=== PATIENT | male | born 1945 | race Caucasian/White ===

== ENCOUNTER 2016-08-14 09:18 | Outpatient (CLI) | payer MEDICARE | END 2016-08-14 09:19 | disposition home or self-care (01) | LOC: NAVSJIPCSP 09:18 | PROVIDERS: ATTEND Internal Medicine | DX: E78.5 Hyperlipidemia, unspecified (principal); E11.29 Type 2 diabetes mellitus with other diabetic kidney complication; Z79.899 Other long term (current) drug therapy | CPT/HCPCS: 36415; 80061 ==

== ENCOUNTER 2016-11-21 11:56 | Outpatient (CLI) | payer MEDICARE ==
[2016-11-21 13:54] LABS: Cardiac Risk 4.9 (Less than 4.5)
[2016-11-21 14:41] LABS: Hemoglobin A1c 12.1 % (4.0-6.0)
== END 2016-11-21 11:57 | disposition home or self-care (01) ==
LOC: NAVSJIPCSP 11:56
PROVIDERS: ATTEND Internal Medicine
DX: E78.5 Hyperlipidemia, unspecified (principal); E11.29 Type 2 diabetes mellitus with other diabetic kidney complication; Z79.899 Other long term (current) drug therapy
CPT/HCPCS: 36415; 80061; 83036

== ENCOUNTER 2019-10-10 17:43 | Inpatient (IN) | payer MEDICARE ==
[2019-10-10 18:24] LABS: ALT (SGPT) 16 U/L (8-55); AST (SGOT) 17 U/L (5-34); Albumin 3.4 g/dL (3.4-4.8); Alkaline Phosphatase 32 U/L (40-110); Anion Gap 17 mmol/L (10-20); BUN (Urea Nitrogen) 26 mg/dL (8.4-25.7); Bilirubin, Total 0.7 mg/dL (0.2-1.2); CK (CPK) 65 U/L (30-200); Calc. Creatinine Clearance 0 mL/min (70-130); Calcium 9.1 mg/dL (7.8-10.44); Carbon Dioxide 19 mmol/L (23-31); Chloride 101 mmol/L (98-107); Estimated GFR-MDRD 40; Globulin 3.2 g/dL (2.4-3.5); Glucose 236 mg/dL (83-110); Protein, Total 6.6 g/dL (5.8-8.1); Sodium 133 mmol/L (136-145)
[2019-10-10 18:40] LABS: #Basophils 0.1 thou/uL (0.0-0.2); #Lymphocytes 1.2 thou/uL (1.20-3.40); #Monocytes 1.2 thou/uL (0.11-0.59); #Neutrophils 11.5 thou/uL (1.40-6.50); %Basophils 0.7 % (0.0-1.0); %Eosinophils 0.4 % (0.0-10.0); %Lymphocytes 8.2 % (21.0-51.0); %Monocytes 8.4 % (0.0-10.0); %Neutrophils 82.3 % (42.0-75.0); Hemoglobin 11.2 g/dL (14.0-18.0); Mean Corpuscular HGB CONC 33.5 g/dL (32.0-36.0); Mean Corpuscular Hemoglobin 33.9 pg (27.0-31.0); Mean Platelet Volume 7.5 fL (7.4-10.4); Platelet Count 174 thou/uL (130-400); RBC Distribution Width 12.3 % (11.5-14.5); Red Blood Cell (RBC) Count 3.31 mill/uL (4.70-6.10)
[2019-10-10] MEDS ORDERED: Sodium Chloride 0.9% 1,000 ML ONE ×2 (18:53→21:02)
[2019-10-10 19:11] LABS: Bilirubin Negative (Negative); Blood, Urine Moderate (Negative); Glucose, Urine (Dipstick) Negative (Negative); Leukocyte Moderate (Negative); Nitrite Negative (Negative); Protein, Urine (Dipstick) 30 mg/dL (Neg-Trace)
[2019-10-10 19:13] LABS: Clarity Cloudy (Clear)
--- NOTE | 2019-10-10 19:19 | RAD ---
CHEST TWO VIEW: 10/10/19 HISTORY: Syncopal episode. COMPARISON: Radiograph from 2016. FINDINGS: Multiple old left sided rib fractures with callus formation. No confluent air space consolidation, pn eumothorax or effusion. Moderate calcifications of the transverse aorta. IMPRESSION: Chronic findings. No acute intrathoracic abnormality. POS: HOME
[2019-10-10 19:21] LABS: Bacteria/HPF 4+ HPF (None Seen); Squamous Epithelial 0-3 HPF (0-3); WBC/HPF Greater Than 50 HPF (0-3)
--- NOTE | 2019-10-10 19:22 | CT ---
CT BRAIN WITHOUT CONTRAST: 10/10/19 HISTORY: Syncope. COMPARISON: CT brain 11/19/15. FINDINGS: Mild atrophy. Mild chronic microvascular ischemic changes. No acute territorial infarct or hemorrhage . The calvarium is intact. The paranasal sinuses and mastoids are relatively clear. IMPRESSION: No acute intracranial abnormality. POS: HOME
[2019-10-10] MEDS ORDERED: cefTRIAXone\\ROCEPHIN 1 GM VIAL ONE (19:41)
[2019-10-10 23:24] VITALS: BMI 23.6
[2019-10-10] MEDS ORDERED: Ondansetron PF 4 MG/2 ML Vial IVP PRN (23:27)
[2019-10-10] MEDS ORDERED: Ondansetron ODT 4 MG TAB SL PRN (23:27)
[2019-10-10] MEDS ORDERED: Dextrose 50% Abboject 50 ML SYRINGE IVP PRN (23:28)
[2019-10-10] MEDS ORDERED: Dextrose 5% in Water 1,000 ML IV PRN (23:28)
[2019-10-10] MEDS ORDERED: HumaLOG 300 UNITS/3 ML VIAL SC PRN ×2 (23:28)
[2019-10-11 05:36] LABS: Band 2 % (5-11); Eosinophils 2 % (0-10); Hemoglobin 10.6 g/dL (14.0-18.0); Lymphocytes 11 % (21-51); MDiff Complete? YES; Mean Corpuscular HGB CONC 33.1 g/dL (32.0-36.0); Mean Corpuscular Volume 99.8 fL (78.0-98.0); Mean Platelet Volume 7.8 fL (7.4-10.4); Monocytes 4 % (0-10); Neutrophil 81 % (42-75); Platelet Count 158 thou/uL (130-400); Platelet Morphology Comment Appears Adequate; RBC Distribution Width 11.7 % (11.5-14.5); RBC Morphology Normal; Red Blood Cell (RBC) Count 3.21 mill/uL (4.70-6.10); White Blood Cell (WBC) Count 9.9 thou/uL (4.8-10.8)
[2019-10-11 05:38] LABS: ALT (SGPT) 17 U/L (8-55); AST (SGOT) 20 U/L (5-34); Albumin 3.1 g/dL (3.4-4.8); Alkaline Phosphatase 26 U/L (40-110); Anion Gap 13 mmol/L (10-20); BUN (Urea Nitrogen) 19 mg/dL (8.4-25.7); Bilirubin, Total 0.4 mg/dL (0.2-1.2); Calc. Creatinine Clearance 69 mL/min (70-130); Calcium 8.7 mg/dL (7.8-10.44); Carbon Dioxide 23 mmol/L (23-31); Chloride 108 mmol/L (98-107); Estimated GFR-MDRD 70; Globulin 2.7 g/dL (2.4-3.5); Glucose 95 mg/dL (83-110); Potassium 3.8 mmol/L (3.5-5.1); Protein, Total 5.8 g/dL (5.8-8.1); Sodium 140 mmol/L (136-145)
[2019-10-11] MEDS: Sodium Chloride 0.9% 1,000 ML IV SCH ×2 (05:38→09:11)
[2019-10-11] MEDS: Levothyroxine 150 MCG TAB PO SCH (05:40)
[2019-10-11] MEDS ORDERED: Sodium Chloride 0.9% 1,000 ML IV SCH (06:00)
[2019-10-11] MEDS: metFORMIN 500 MG TAB PO SCH ×2 (08:16→16:28)
[2019-10-11] MEDS: glipiZIDE 5 MG TAB PO SCH ×2 (08:16→16:28)
[2019-10-11] MEDS: Amlodipine 5 MG TAB PO SCH (08:16)
[2019-10-11] MEDS: Lisinopril 20 MG TAB PO SCH ×2 (08:17→20:33)
[2019-10-11] MEDS ORDERED: FENOFIBRATE 200 MG PO SCH (09:00)
--- NOTE | 2019-10-11 14:09 | HP ---
PRINCIPAL DIAGNOSIS: Altered mental status and presyncope. BRIEF HISTORY: This is a very pleasant 74-year-old male, who is well known to me, was apparently talking to his neighbor and was outside in the heat for about 45 minutes when he felt weak and kind of felt like his legs would not hold him anymore and collapsed to the ground. No loss of consciousness. When the neighbors tried to get him up, he was unable to stand, so Paramedics were called. He was evaluated in the emergency room and was diagnosed with possible heat exhaustion and dehydration. His BUN and creatinine on evaluation in the ER were 26 and 1.67 with a sodium of 133. Workup, he also had an elevated white blood count with questionable UTI with urinalysis showing 4 to 6 rbc's, greater than 50 wbc's, and 4+ bacteria. It was decided to admit him to the hospital overnight for observation. This morning, he is feeling much better, but he is still slightly confused. Plan is to change him to inpatient admission and he apparently was pretty unsteady on his feet, so we will consult Physical Therapy. We will also start him on empiric Levaquin and we will stop IV fluids after his current bag. We will await urine culture. He denies any fever or chills. He denies any chest pain or shortness of breath. PAST MEDICAL HISTORY: 1. Diabetes mellitus, type 2. 2. Hypertension. 3. Dyslipidemia. 4. Osteoarthritis. PAST SURGICAL HISTORY: None significant. ALLERGIES: NO KNOWN DRUG ALLERGIES. FAMILY HISTORY: Noncontributory to current admission. [place] think his nephew lives in the same property, but not in the same house. No documented tobacco, alcohol, or recreational drug abuse. MEDICATIONS: He takes; 1. Norvasc 5 mg daily. 2. Glucotrol 5 mg b.i.d. 3. Levoxyl 150 mcg daily. 4. Lisinopril 20 mg daily. 5. Metformin 500 mg b.i.d. 6. Niaspan ER 500 mg daily. 7. Zocor 40 mg daily. REVIEW OF SYSTEMS: CARDIOVASCULAR: Denied any chest pain, shortness of breath, palpitations, PND, orthopnea, or pedal edema. RESPIRATORY: Denies any chronic cough, expectoration, or pleuritic-type chest pain. GASTROINTESTINAL: Denies any nausea, vomiting, diarrhea, constipation, hematemesis, melena, or hematochezia. GENITOURINARY: Denies any frequency, urgency, dysuria, or hematuria. CENTRAL NERVOUS SYSTEM: Did have lightheadedness, dizziness, but no fainting spells. No seizure like activity. EXTREMITIES: Frequent joint pains. HEENT: Denies any difficulty speech, vision, hearing, or swallowing. SKIN: Denies any rash. PSYCHIATRIC: He denies any depression or suicidal ideations. He does have episodes of confusion. PHYSICAL EXAMINATION: GENERAL: Very pleasant 74-year-old male, who is up in bed, getting ready to eat lunch. He is able to recognize me. He denies any questions or concerns. VITAL SIGNS: He is afebrile. Heart rate 64, respirations 18, oxygen saturation 99% on room air, blood pressure 159/68. HEENT: Normocephalic and atraumatic. Pupils equally reactive to light and accommodation. Extraocular muscles are intact. NECK: No JVD, thyromegaly, cervical lymphadenopathy, or throat exudates. No carotid bruits. CARDIOVASCULAR: S1 and S2 plus. Rate and rhythm regular. RESPIRATORY: Normal vesicular breath sounds heard in all lung ken[place]. ABDOMEN: Soft, nontender. Bowel sounds heard in all quadrants. No organomegaly. No palpable mass. No CV angle tenderness. EXTREMITIES: Without cyanosis or clubbing. Peripheral pulses are palpable. CENTRAL NERVOUS SYSTEM: Awake and responsive. Cranial nerves 2 through 12 intact. Motor system examination is grossly nonfocal, but nursing states that he was very ataxic and had problems with his balance as well as strength when taking him to the restroom. IMPRESSION: 1. Resolved dehydration. 2. Possible heat exhaustion. 3. Possible urinary tract infection/prostatitis. He has a history of Escherichia coli urinary tract infection in 2016. 4. Hypertension. 5. Dyslipidemia. 6. Diabetes mellitus type 2. 7. Hypothyroidism. 8. Osteoarthritis. PLAN: 1. Change him to inpatient admission. 2. 1800 calorie heart healthy ADA diet. 3. Accu-Cheks with sliding scale coverage. 4. DVT prophylaxis with PlexiPulses. 5. Decubitus precautions. 6. Stress ulcer prophylaxis. 7. Empiric Levaquin until urine cultures are back. 8. PT/OT eval and treat. 9. Stop IV fluids after current bag is done. 10. Recheck routine labs in the morning. 11. Discussed with the patient in detail. All questions were answered. Job ID: [id number]
[2019-10-11] MEDS: Simvastatin 40 MG TAB PO SCH (20:33)
[2019-10-12] MEDS: Levothyroxine 150 MCG TAB PO SCH (05:02)
[2019-10-12 05:45] LABS: Band 7 % (5-11); Hemoglobin 11.3 g/dL (14.0-18.0); Lymphocytes 14 % (21-51); MDiff Complete? YES; Mean Corpuscular HGB CONC 32.3 g/dL (32.0-36.0); Mean Corpuscular Hemoglobin 32.2 pg (27.0-31.0); Mean Corpuscular Volume 99.8 fL (78.0-98.0); Mean Platelet Volume 7.3 fL (7.4-10.4); Monocytes 2 % (0-10); Neutrophil 77 % (42-75); Platelet Count 196 thou/uL (130-400); Platelet Morphology Comment Appears Adequate; RBC Distribution Width 11.8 % (11.5-14.5); RBC Morphology Normal; Red Blood Cell (RBC) Count 3.51 mill/uL (4.70-6.10); White Blood Cell (WBC) Count 11.6 thou/uL (4.8-10.8)
[2019-10-12 05:51] LABS: Anion Gap 13 mmol/L (10-20); BUN (Urea Nitrogen) 15 mg/dL (8.4-25.7); Calc. Creatinine Clearance 71 mL/min (70-130); Calcium 9.3 mg/dL (7.8-10.44); Carbon Dioxide 23 mmol/L (23-31); Chloride 105 mmol/L (98-107); Estimated GFR-MDRD 72; Glucose 90 mg/dL (83-110); Potassium 3.6 mmol/L (3.5-5.1); Sodium 137 mmol/L (136-145)
[2019-10-12] MEDS: glipiZIDE 5 MG TAB PO SCH ×2 (09:53→17:25)
[2019-10-12] MEDS: metFORMIN 500 MG TAB PO SCH ×2 (09:53→17:25)
[2019-10-12] MEDS: Lisinopril 20 MG TAB PO SCH ×2 (09:53→20:03)
[2019-10-12] MEDS: Amlodipine 5 MG TAB PO SCH (09:53)
--- NOTE | 2019-10-12 17:48 | PRG ---
DATE OF SERVICE: 10/12/2019 Peripheral pulses are palpable. CENTRAL NERVOUS SYSTEM: Generalized weakness, otherwise nonfocal. LABORATORY DATA: Laboratory values did show gram-negative rods. IMPRESSION: 1. Urinary tract infection. 2. Resolved dehydration and heat exhaustion. 3. Diabetes mellitus type 2. 4. Hypertension. 5. Dyslipidemia. 6. Hypothyroidism. PLAN: 1. Continue current medications. 2. 1800 calorie heart healthy ADA diet. 3. Accu-Cheks with sliding scale coverage. 4. Continue empiric antibiotic. 5. Await culture and sensitivity. 6. PT/OT eval and treat. 7. Routine laboratory values. 8. Anticipate that he will need just a couple of days of therapy and then we should be able to get him back home. He apparently walked 50 feet and then 230 feet with a rolling walker with minimal cues. Job ID: [id number]
[2019-10-12] MEDS: Simvastatin 40 MG TAB PO SCH (20:02)
[2019-10-13] MEDS: Levothyroxine 150 MCG TAB PO SCH (06:08)
[2019-10-13] MEDS: metFORMIN 500 MG TAB PO SCH ×2 (09:13→17:25)
[2019-10-13] MEDS: glipiZIDE 5 MG TAB PO SCH ×2 (09:13→17:25)
[2019-10-13] MEDS: Amlodipine 5 MG TAB PO SCH (09:13)
[2019-10-13] MEDS: Lisinopril 20 MG TAB PO SCH ×2 (09:13→20:31)
--- NOTE | 2019-10-13 14:41 | PRG ---
DATE OF SERVICE: 10/13/2019 SUBJECTIVE: Mr. Norman is up in his chair. He ate his breakfast. He apparently did well with therapy, spoke with therapy, and they stated he should be ready to go home. They do recommend home health to kind of monitor him initially from his activity standpoint. The patient states that he is going to have his neighbor pick him up and he is not going to drive. He knows that he needs to be home for him to qualify for home health. OBJECTIVE: VITAL SIGNS: He is afebrile. Heart rate 70, respirations 20, oxygen saturation 98% on room air, blood pressure 140/67. CARDIOVASCULAR: S1 and S2 plus. RESPIRATORY: Normal vesicular breath sounds. ABDOMEN: Soft, nontender. Bowel sounds heard in all quadrants. EXTREMITIES: Without cyanosis or clubbing. CENTRAL NERVOUS SYSTEM: Improving deconditioning. LABORATORY DATA: Cultures are growing Klebsiella greater than 100,000 CFU and it is sensitive to Levaquin. IMPRESSION: 1. Klebsiella urinary tract infection. 2. Resolved dehydration. 3. Possible heat exhaustion. 4. Diabetes mellitus type 2. 5. Hypertension. 6. Dyslipidemia. 7. Hypothyroidism. 8. Improving deconditioning. PLAN: 1. Continue current medications including Levaquin for a total of 14 days for possible prostatitis. 2. Physical therapy and discharge planning. 3. Arrange home health. 4. 1800 calorie heart healthy ADA diet. 5. Accu-Cheks with sliding scale coverage. 6. DVT and stress ulcer prophylaxis. 7. Decubitus precautions. 8. Discussed with the patient in detail. All questions were answered. Job ID: [id number]
[2019-10-13] MEDS: Simvastatin 40 MG TAB PO SCH (20:31)
[2019-10-14] MEDS: Levothyroxine 150 MCG TAB PO SCH (05:04)
[2019-10-14 08:03] VITALS: BP 132/67; TEMP 97.8
[2019-10-14] MEDS: glipiZIDE 5 MG TAB PO SCH (08:39)
[2019-10-14] MEDS: metFORMIN 500 MG TAB PO SCH (08:39)
[2019-10-14] MEDS: Lisinopril 20 MG TAB PO SCH (08:40)
[2019-10-14] MEDS: Amlodipine 5 MG TAB PO SCH (08:40)
--- NOTE | 2019-10-14 13:01 | DIS ---
DATE OF ADMISSION: 10/11/2019 DATE OF DISCHARGE: 10/14/2019 IMPRESSION: Klebsiella Urinary tract infection. SECONDARY DIAGNOSES: 1. Heat exhaustion, resolved. 2. Dehydration, resolved. 3. Diabetes mellitus, type 2. 4. Hypertension. 5. Dyslipidemia. 6. Hypothyroidism. COMPLICATIONS: None. ADVERSE REACTIONS: None. PROCEDURES: None. CONSULTATIONS: Physical Therapy and Occupational Therapy. HOSPITAL COURSE: The patient was admitted with altered mental status and presyncope after standing outside and talking to his neighbor for about 35 minutes. He apparently just collapsed and fell down. No loss of consciousness. On evaluation, his BUN and creatinine were elevated with creatinine being 1.67, and his urinalysis also showed full field wbc's. He felt much better with IV fluids. He was admitted overnight for monitoring. With him still feeling weak, even though his laboratory values were improved and a question of UTI, it was decided to keep him in the hospital for a couple of more days, start him on antibiotics, await urine cultures and have PT/OT work with them. The patient has been doing well. Still has mild ataxia, which is chronic, but it was felt to be safe enough to go home. He did not want to stay any longer to continue therapy. He does have a nephew, who lives in the property, but not in his house. I advised the patient not to drive and he states no, his neighbor is going to pick him up and he is the one who usually takes him for grocery shopping. The patient was made aware that he needs to be homebound for him to qualify for home health. He can make doctor's appointments. He can go to [facility], but I told him he cannot go out to eat or go to movies and he understands. He does need continued therapy to help with his balance and to monitor his fluid intake and his vital signs. I encouraged him to not stay outside in the heat too long. PHYSICAL EXAMINATION: VITAL SIGNS: On the day of discharge, he is afebrile. Heart rate is 70, respirations 18, oxygen saturation 96% on room air, blood pressure 132/67. CARDIOVASCULAR: S1 and S2 plus. RESPIRATORY: Normal vesicular breath sounds. ABDOMEN: Soft, nontender. Bowel sounds heard in all quadrants. EXTREMITIES: Without cyanosis or clubbing. CENTRAL NERVOUS SYSTEM: Much improved deconditioning. LABORATORY DATA: Laboratory values yesterday showed a white count of 11.6, hemoglobin and hematocrit are 11.3 and 35.1. Blood sugars are 128, 97, 143, 108, and 164. Sodium 137, potassium 3.6, BUN and creatinine are 15 and 1.01. DISCHARGE MEDICATIONS: 1. Levaquin 500 mg daily for 10 more days. 2. Amlodipine 5 mg at bedtime. 3. Glipizide 5 mg daily. 4. Levoxyl 150 mcg in the morning on an empty stomach. 5. Metformin 500 mg b.i.d. 6. Niaspan ER 500 mg daily. 7. Zocor 40 mg daily. 8. Enalapril 20 mg b.i.d. 9. Fenofibrate 200 mg daily. He is to follow an 1800 calorie heart healthy ADA diet. Activity as tolerated. Home Health arranged from the office. The patient did not have any preference. This discharge summary to be considered as [id number]. Miko sent into [employer]. Total time spent on this discharge 35 minutes. Job ID: [id number]
== END 2019-10-14 13:13 | disposition home health service (06) | DRG 690 ==
LOC: NAV ERS 17:43 → NAV ACUTE 21:55 → OBSVTOIN 10-11 13:39
PROVIDERS: ADMIT Internal Medicine; ATTEND Internal Medicine
DX: N39.0 Urinary tract infection, site not specified (principal); E86.9 Volume depletion, unspecified; E86.0 Dehydration; E11.9 Type 2 diabetes mellitus without complications; I10 Essential (primary) hypertension; E78.5 Hyperlipidemia, unspecified; E03.9 Hypothyroidism, unspecified; M19.90 Unspecified osteoarthritis, unspecified site; B96.1 Klebsiella pneumoniae [K. pneumoniae] as the cause of diseases classified elsewhere; X30.XXXA Exposure to excessive natural heat, initial encounter; Z87.440 Personal history of urinary (tract) infections
CPT/HCPCS: 36415; 36416; 70450; 71046; 80048; 80053; 81003; 81015; 82550; 84484; 85025; 87077; 87086; 87186; 93005; 96361; 96365; J0696; J7050

== ENCOUNTER 2020-09-26 12:13 | Emergency (ER) | payer MEDICARE, OTHER ==
[2020-09-26 13:07] LABS: #Lymphocytes 1.6 thou/uL (1.20-3.40); #Neutrophils 13.3 thou/uL (1.40-6.50); %Basophils 0.6 % (0.0-1.0); %Eosinophils 0.3 % (0.0-10.0); %Monocytes 5.5 % (0.0-10.0); %Neutrophils 83.7 % (42.0-75.0); Hemoglobin 14.2 g/dL (14.0-18.0); Mean Corpuscular HGB CONC 32.4 g/dL (32.0-36.0); Mean Corpuscular Hemoglobin 31.2 pg (27.0-31.0); Mean Corpuscular Volume 96.2 fL (78.0-98.0); Platelet Count 219 thou/uL (130-400); RBC Distribution Width 11.7 % (11.5-14.5); Red Blood Cell (RBC) Count 4.55 mill/uL (4.70-6.10); White Blood Cell (WBC) Count 15.9 thou/uL (4.8-10.8)
[2020-09-26 13:08] LABS: Bilirubin Negative (Negative); Blood, Urine Trace (Negative); Clarity Clear (Clear); Glucose, Urine (Dipstick) >=1000 mg/dL (Negative); Ketone, Urine 15 mg/dL (Negative); Leukocyte Negative (Negative); Nitrite Negative (Negative); Protein, Urine (Dipstick) Negative (Neg-Trace); Urobilinogen 0.2 mg/dL (Less than 2)
[2020-09-26 13:08] LABS: #Basophils 0.1 thou/uL (0.0-0.2); #Monocytes 0.9 thou/uL (0.11-0.59)
[2020-09-26 13:09] LABS: ALT (SGPT) 13 U/L (8-55); AST (SGOT) 11 U/L (5-34); Albumin 3.8 g/dL (3.4-4.8); Alkaline Phosphatase 46 U/L (40-110); Anion Gap 17 mmol/L (10-20); BUN (Urea Nitrogen) 16 mg/dL (8.4-25.7); Bilirubin, Total 1.9 mg/dL (0.2-1.2); CK (CPK) 79 U/L (30-200); Calc. Creatinine Clearance 0 mL/min (70-130); Calcium 9.2 mg/dL (7.8-10.44); Carbon Dioxide 22 mmol/L (23-31); Chloride 102 mmol/L (98-107); Globulin 3.9 g/dL (2.4-3.5); Glucose 320 mg/dL (83-110); Protein, Total 7.7 g/dL (5.8-8.1); Sodium 137 mmol/L (136-145)
[2020-09-26 13:20] LABS: RBC/HPF 0-3 HPF (0-3); WBC/HPF 0-3 HPF (0-3)
[2020-09-26] MEDS ORDERED: Sodium Chloride 0.9% 500 ML ONE ×3 (13:33→15:56)
[2020-09-26] MEDS ORDERED: Acetaminophen 500 MG TAB ONE (13:58)
[2020-09-26] MEDS ORDERED: cefTRIAXone\\ROCEPHIN 2 GM VIAL ONE (14:36)
[2020-09-26] MEDS ORDERED: Sodium Chloride 0.9% 100 ML ONE (14:36)
[2020-09-26 16:05] LABS: CSF Source CSF; Clarity Clear (Clear); Tube # 2
[2020-09-26 17:25] LABS: Lactic Acid 2.1 mmol/L (0.5-2.2)
[2020-09-27 01:33] LABS: SARS-CoV-2 PCR by NAA Not Detected (NotDetected)
== END 2020-09-26 19:50 | disposition short-term general hospital (02) ==
LOC: NAV ERS 12:13
DX: R29.1 Meningismus (principal); R51.9 Headache, unspecified; R50.9 Fever, unspecified; I10 Essential (primary) hypertension; E11.9 Type 2 diabetes mellitus without complications; E78.5 Hyperlipidemia, unspecified; E03.9 Hypothyroidism, unspecified; Z79.899 Other long term (current) drug therapy
CPT/HCPCS: 62270; 70450; 71045; 80053; 81003; 81015; 82550; 82945; 83605; 84157; 84484; 85025; 87040; 87070; 87205; 87635; 89051; 93005; 96365; 96366; J0696; J3370; J3490; J7030; U0003; U0005

== ENCOUNTER 2021-08-18 10:16 | Emergency (ER) | payer MEDICARE ==
[2021-08-18] MEDS ORDERED: Aspirin Chewable 81 MG TAB ONE (11:02)
[2021-08-18] MEDS ORDERED: Nitroglycerin 2% Ointment 1 INCH/1 GM Packet ONE (11:02)
[2021-08-18 11:07] LABS: #Basophils 0.1 thou/uL (0.0-0.2); #Eosinphils 0.2 thou/uL (0.0-0.7); #Lymphocytes 1.8 thou/uL (1.20-3.40); #Monocytes 0.7 thou/uL (0.11-0.59); #Neutrophils 8.2 thou/uL (1.40-6.50); %Basophils 0.8 % (0.0-1.0); %Eosinophils 2.1 % (0.0-10.0); %Lymphocytes 16.2 % (21.0-51.0); %Neutrophils 74.9 % (42.0-75.0); Mean Corpuscular HGB CONC 32.2 g/dL (32.0-36.0); Mean Corpuscular Hemoglobin 32.4 pg (27.0-31.0); Mean Platelet Volume 7.3 fL (7.4-10.4); Platelet Count 259 thou/uL (130-400); Red Blood Cell (RBC) Count 4.32 mill/uL (4.70-6.10)
[2021-08-18 11:30] LABS: ALT (SGPT) 19 U/L (8-55); AST (SGOT) 21 U/L (5-34); Alkaline Phosphatase 40 U/L (40-110); Anion Gap 13 mmol/L (10-20); BUN (Urea Nitrogen) 25 mg/dL (8.4-25.7); Bilirubin, Total 0.9 mg/dL (0.2-1.2); Calc. Creatinine Clearance 0 mL/min (70-130); Calcium 9.5 mg/dL (7.8-10.44); Carbon Dioxide 22 mmol/L (23-31); Chloride 105 mmol/L (98-107); Globulin 3.4 g/dL (2.4-3.5); Glucose 239 mg/dL (83-110); Lipase 63 U/L (8-78); Potassium 4.3 mmol/L (3.5-5.1); Protein, Total 7.4 g/dL (5.8-8.1); Sodium 136 mmol/L (136-145)
[2021-08-18] MEDS ORDERED: Amlodipine 5 MG TAB ONE (16:57)
[2021-08-18] MEDS ORDERED: metFORMIN 500 MG TAB ONE (16:57)
[2021-08-18] MEDS ORDERED: Cefepime 2 GM VIAL ONE (16:57)
== END 2021-08-18 18:32 | disposition short-term general hospital (02) ==
LOC: NAV ERS 10:16
DX: R07.89 Other chest pain (principal); E78.5 Hyperlipidemia, unspecified; I10 Essential (primary) hypertension; E11.9 Type 2 diabetes mellitus without complications; E03.9 Hypothyroidism, unspecified; Z79.82 Long term (current) use of aspirin; Z79.84 Long term (current) use of oral hypoglycemic drugs; Z79.890 Hormone replacement therapy
CPT/HCPCS: 36415; 71045; 80053; 83690; 84484; 85025; 93005; J0692

== ENCOUNTER 2022-03-12 11:35 | Emergency (ER) | payer MEDICARE ==
[2022-03-12 12:03] LABS: #Basophils 0.1 thou/uL (0.0-0.2); #Lymphocytes 0.8 thou/uL (1.20-3.40); #Monocytes 0.8 thou/uL (0.11-0.59); #Neutrophils 13.2 thou/uL (1.40-6.50); %Basophils 0.5 % (0.0-1.0); %Eosinophils 0.1 % (0.0-10.0); %Lymphocytes 5.5 % (21.0-51.0); %Monocytes 5.5 % (0.0-10.0); %Neutrophils 88.5 % (42.0-75.0); Hemoglobin 14.1 g/dL (14.0-18.0); Mean Corpuscular HGB CONC 33.9 g/dL (32.0-36.0); Mean Corpuscular Hemoglobin 35.8 pg (27.0-31.0); Mean Platelet Volume 8.2 fL (7.4-10.4); Platelet Count 170 thou/uL (130-400); RBC Distribution Width 12.5 % (11.5-14.5); Red Blood Cell (RBC) Count 3.95 mill/uL (4.70-6.10); White Blood Cell (WBC) Count 14.9 thou/uL (4.8-10.8)
[2022-03-12 12:21] LABS: ALT (SGPT) 28 U/L (8-55); AST (SGOT) 45 U/L (5-34); Albumin 3.8 g/dL (3.4-4.8); Alkaline Phosphatase 46 U/L (40-110); Anion Gap 18 mmol/L (10-20); BUN (Urea Nitrogen) 14 mg/dL (8.4-25.7); Bilirubin, Total 3.5 mg/dL (0.2-1.2); CK (CPK) 868 U/L (30-200); Calc. Creatinine Clearance 0 mL/min (70-130); Calcium 8.6 mg/dL (7.8-10.44); Carbon Dioxide 21 mmol/L (23-31); Chloride 100 mmol/L (98-107); Estimated GFR 50; Globulin 3.1 g/dL (2.4-3.5); Glucose 289 mg/dL (83-110); Magnesium 1.1 mg/dL (1.6-2.6); Protein, Total 6.9 g/dL (5.8-8.1); Sodium 135 mmol/L (136-145)
[2022-03-12 12:30] LABS: Acetaminophen Less than 10.0 mcg/mL (10.0-30.0); Alcohol Less than 10 mg/dL (Less than 10); Salicylate Less than 8.0 mg/dL (15.0-30.0)
[2022-03-12 12:34] LABS: MDiff Complete? YES; Macrocytosis SLIGHT = 6-15 cells (100X) (0-5/hpf); Platelet Morphology Comment Appears Adequate
[2022-03-12] MEDS ORDERED: Magnesium 2 GM/50 ML BAG (IN WATER) ONE (12:43)
[2022-03-12 14:28] LABS: Bilirubin Negative (Negative); Blood, Urine Trace (Negative); Clarity Clear (Clear); Glucose, Urine (Dipstick) 500 mg/dL (Negative); Ketone, Urine 15 mg/dL (Negative); Leukocyte Negative (Negative); Nitrite Negative (Negative); Protein, Urine (Dipstick) Negative (Neg-Trace); Specific Gravity, Urine 1.015 (1.005-1.030); Urobilinogen 0.2 mg/dL (Less than 2)
[2022-03-12] MEDS ORDERED: Sodium Chloride 0.9% 2,000 ML ONE (14:35)
[2022-03-12 14:37] LABS: Bacteria/HPF Rare-Few HPF (None Seen); RBC/HPF None Seen HPF (0-3); WBC/HPF 0-3 HPF (0-3)
[2022-03-12 14:38] LABS: Amphetamine Not Detected (NotDetected); Barbiturates Screen Not Detected (NotDetected); Benzodiazepine Screen Not Detected (NotDetected); Cocaine Metabolite Screen Not Detected (NotDetected); Methadone Not Detected (NotDetected); Methamphetamine Not Detected (NotDetected); Opiate Screen Not Detected (NotDetected); Oxycodone Screen Not Detected (NotDetected); Phencyclidine (PCP) Not Detected (NotDetected); THC/Cannabinoid Screen Not Detected (NotDetected); Tricyclic Screen Not Detected (NotDetected)
[2022-03-12 14:39] LABS: Medtox Control Line Valid? VALID (VALID)
[2022-03-12 16:56] LABS: SARS-CoV-2 NAA Rapid Test Not Detected (NotDetected)
[2022-03-12] MEDS ORDERED: Sodium Chloride 0.9% 100 ML ONE ×2 (18:12→18:19)
[2022-03-12] MEDS ORDERED: Cefepime 2 GM VIAL ONE (18:12)
[2022-03-12] MEDS ORDERED: cefTRIAXone\\ROCEPHIN 2 GM VIAL ONE (18:19)
== END 2022-03-12 18:58 | disposition short-term general hospital (02) ==
LOC: NAV ERS 11:35
DX: S63.502A Unspecified sprain of left wrist, initial encounter (principal); M62.82 Rhabdomyolysis; E83.42 Hypomagnesemia; E03.9 Hypothyroidism, unspecified; I10 Essential (primary) hypertension; E11.9 Type 2 diabetes mellitus without complications; E78.5 Hyperlipidemia, unspecified; W19.XXXA Unspecified fall, initial encounter
CPT/HCPCS: 36416; 51701; 70450; 71045; 80053; 80306; 80307; 81003; 81015; 82550; 83735; 83880; 84443; 84484; 85025; 87040; 87086; 87149; 93005; 94760; 96365; 96366; 96367; J0692; J0696; J3475; J3490; J7050; U0002